=== PATIENT | female | born 1985 | race American Indian/Alaskan Native ===

== ENCOUNTER 2019-04-06 22:24 | Emergency (ER) | payer OTHER, MEDICAID ==
[2019-04-06 22:38] VITALS: BP 134/92
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
== END 2019-04-07 00:01 | disposition home or self-care (01) ==
LOC: ED 22:24
DX: M25.552 Pain in left hip (principal); M54.5 Low back pain; M79.10 Myalgia, unspecified site; J45.909 Unspecified asthma, uncomplicated; E28.2 Polycystic ovarian syndrome; Z79.899 Other long term (current) drug therapy; V89.2XXA Person injured in unspecified motor-vehicle accident, traffic, initial encounter; Y93.89 Activity, other specified; Y92.410 Unspecified street and highway as the place of occurrence of the external cause; Y99.8 Other external cause status
CPT/HCPCS: 72100

== ENCOUNTER 2019-08-24 14:14 | Emergency (ER) | payer MEDICAID ==
[2019-08-24 14:21] VITALS: BP 142/88
--- NOTE | 2019-08-24 16:05 | Emergency Department Report ---
Chief Complaint: Skin/Abscess/Foreign Body Stated Complaint: ABCESS LFT KNEE DRAIN/PAIN Time Seen by Provider: 08/24/19 16:01 - HPI History of Present Illness: Ms. Pride is a 34 yo female who has a "knot" "abscess" on left knee. Underwent femur fx surgery 11 months ago. ON exam, 1.5 cm healing wound scar without fluctuance or cellulitis on the left knee. No treatment needed. MSE performed and completed. The scar is 2 cm medial and inferior old well-healed surgical scar. - Exam Vital Signs: Vital Signs 08/24/19 08/24/19 14:18 15:28 Temperature 99.5 F Pulse Rate 79 79 Respiratory 18 16 Rate Blood Pressure 142/88 Blood Pressure 142/88 [Left] O2 Sat by Pulse 99 99 Oximetry MSE screening note: Focused history and physical exam performed. Due to findings the following was ordered: ED Disposition for MSE Clinical Impression: Healing wound Disposition: Z- MED SCREENING EXAM-LEFT Condition: Stable
== END 2019-08-24 16:29 | disposition left against medical advice (07) ==
LOC: ED 14:14
DX: L02.416 Cutaneous abscess of left lower limb (principal); L03.116 Cellulitis of left lower limb
CPT/HCPCS: 99282

== ENCOUNTER 2020-03-17 00:04 | Emergency (ER) | payer SELFPAY ==
[2020-03-17 00:13] VITALS: BP 157/89
== END 2020-03-17 01:00 | disposition left against medical advice (07) ==
LOC: ED 00:04
DX: R07.89 Other chest pain (principal); R05 Cough; R11.0 Nausea; Z53.21 Procedure and treatment not carried out due to patient leaving prior to being seen by health care provider
CPT/HCPCS: 93005

== ENCOUNTER 2021-08-29 16:26 | Emergency (ER) | payer OTHER ==
[2021-08-29 16:32] VITALS: BP 134/78
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
== END 2021-08-29 18:08 | disposition home or self-care (01) ==
LOC: ED 16:26
DX: J06.9 Acute upper respiratory infection, unspecified (principal)
CPT/HCPCS: 99282